=== PATIENT | female | born 1955 | race Caucasian/White ===

== ENCOUNTER 2023-12-20 18:02 | Emergency (ER) | payer MEDICAID ==
[~2023-12-20] VITALS: Ht 152.4 cm; Wt 55.0 kg
[2023-12-20 18:27] VITALS: TEMP 98.2; O2SAT 100
[2023-12-20] MEDS ORDERED: TETANUS, DIPHTHERIA, PERTUSSIS VAC/PF 0.5ML (>10YR OLD) IM ONE (21:00)
[2023-12-20] MEDS: TETANUS, DIPHTHERIA, PERTUSSIS VAC/PF 0.5ML (>10YR OLD) IM ONE (22:59)
[2023-12-20] MEDS: LIDOCAINE HCL 1% 20ML VIAL INFIL ONE (23:18)
[2023-12-20] MEDS ORDERED: DOXY100C5 MT (23:26)
[2023-12-21 00:27] VITALS: BP 142/89; PULSE 70; RESP 18; O2SAT 100
== END 2023-12-21 00:29 | disposition home or self-care (01) ==
LOC: ER 18:02
DX: S51.012A Laceration without foreign body of left elbow, initial encounter (principal); Z88.0 Allergy status to penicillin; W54.0XXA Bitten by dog, initial encounter; Y93.89 Activity, other specified; Y92.89 Other specified places as the place of occurrence of the external cause; Y99.8 Other external cause status
CPT/HCPCS: 73090; 90715; 12002; 90471; 99283; J3490; Z7610